=== PATIENT | male | born 1965 | race Caucasian/White ===

== ENCOUNTER → 2016-11-26 | Outpatient (CLI) | payer MEDICARE, MEDICAID ==
[~2016-11-26] MED LIST: ACET325T38 PO; BISA-65 PO; BISA10SU6 RC; BNZT2T PO; CARB100T PO; CARB15DR87 LEFT EAR; CLIN300C11 PO; CRB200T PO; DCS100C PO; MULT-608 PO; PALI6TAB2 PO; SENN1TAB6 PO
--- NOTE | 2016-11-26 15:58 | Diagnostic Imaging Report ---
PROCEDURE: US right lower extremity venous. TECHNIQUE: Multiple real-time grayscale images were obtained over the right lower extremity in various projections. Additional duplex Doppler and color Doppler images were also obtained. INDICATION: Right leg swelling. EXAMINATION: Grayscale and color Doppler evaluation of the deep veins of the right lower extremity were performed with waveform analysis. FINDINGS: Continuous venous flow is present. No intraluminal filling defect is identified. There is normal compressibility and response to augmentation. No abnormal perivascular fluid collection is identified. IMPRESSION: No ultrasound evidence of right lower extremity deep venous thrombosis. Dictated by: Dictated on workstation # [id number]
== END ==
LOC: RAD 15:25
PROVIDERS: ATTEND Family Medicine
DX: R22.41 Localized swelling, mass and lump, right lower limb (principal)

== ENCOUNTER 2017-02-07 16:44 | Emergency (ER) | payer MEDICARE, MEDICAID ==
[~2017-02-07] VITALS: Ht 157.5 cm; Wt 68.9 kg
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
--- NOTE | 2017-02-07 16:52 | ED Head Injury ---
General Stated Complaint: FALL/HEAD LAC Source: caregiver Exam Limitations: no limitations History of Present Illness Time seen by provider: 16:51 Initial Comments To ER accompanied by staff from [place] where he resides due to a diagnosis of profound mental retardation. He is nonverbal. Unwitnessed fall today in his room with a laceration over the lateral left eyebrow. Occurred: just prior to arrival Severity: mild Allergies and Home Medications Allergies Coded Allergies: Penicillins (Unverified Allergy, Unknown, 09/24/15) tuberculin,purif.prot.deriv. (Unverified Allergy, Unknown, 09/24/15) Home Medications Acetaminophen 325 Mg Tablet, 650 MG PO EVERY 4-6 HOURS PRN for PAIN/ELEVATED TEMP, (Reported) TAKES 2 (325MG) TABLETS Benztropine Mesylate 2 Mg Tablet, 2 MG PO 0700,1600,2000, (Reported) Bisacodyl 5 Mg Tablet.dr, 5-10 MG PO DAILY PRN for CONSTIPATION, (Reported) TAKES 1 TO 2 (5MG) TABLETS Bisacodyl 10 Mg Supp.rect, 10 MG RC HS PRN for CONSTIPATION, (Reported) Carbamazepine 100 Mg Tab.chew, 100 MG PO DAILY @ 1600, (Reported) Carbamazepine 200 Mg Tablet, 200 MG PO 0700, 1900, (Reported) Carbamide Peroxide 15 Ml Drops, 10 DROPS LEFT EAR DAILY for 10 Days, (Reported) Clindamycin HCl 300 Mg Capsule, 300 MG PO TID, #15 Prescribed by: PAULA JETER on 09/26/15 0806 Docusate Sodium 100 Mg Cap, 200 MG PO DAILY, (Reported) TAKES 2 (100MG) CAPSULES Multivitamins 1 Tab Tablet, 1 TAB PO DAILY, (Reported) Paliperidone 6 Mg Tab.osm.24, 6 MG PO 0700,1900, (Reported) Constitutional: see HPI Eyes: No Symptoms Reported Ears, Nose, Mouth, Throat: no symptoms reported Respiratory: no symptoms reported Cardiovascular: no symptoms reported Genitourinary: no symptoms reported Musculoskeletal: no symptoms reported Skin: no symptoms reported Psychiatric/Neurological: No Symptoms Reported Past Hpxclir-Vaatgp-Jtvgdy Hx Patient Social History Recent Foreign Travel: No Contact w/Someone Who Travel: No Immunizations Up To Date Date of Influenza Vaccine: Jan 20, 2015 Seasonal Allergies Seasonal Allergies: No Respiratory Currently Using CPAP: No Currently Using BIPAP: No Neurological Neurological Disorders: Developmental Disorder, Seizure Disorder Reproductive System Hx Reproductive Disorders: No Sexually Transmitted Disease: No HIV/AIDS: No Gastrointestinal Gastrointestinal Disorders: Chronic Constipation, Hepatitis Musculoskeletal Musculoskeletal Disorders: Scoliosis, Contracture HEENT Loss of Vision: Denies Hearing Impairment: Hard of Hearing Psychosocial Behavioral Health Disorders: Anxiety, Personality Disorder, Violent Behavior, Depression Blood Transfusions Adverse Reaction to a Blood Tr: No Family Medical History Family Medial History: Patient reports no known family medical history. Physical Exam Vital Signs Vital Sign - Last 12Hours 02/07/17 16:53 Temp 96.8 Pulse 75 Resp 16 B/P (MAP) 118/81 Pulse Ox 98 Capillary Refill : General Appearance: WD/WN, no apparent distress HEENT: PERRL/EOMI, normal ENT inspection, other Neck: non-tender, full range of motion Cardiovascular: regular rate, rhythm Respiratory: no respiratory distress, no accessory muscle use Gastrointestinal: non tender, soft Extremities: normal range of motion, non-tender Psychiatric: alert, oriented x 3 Crainal Nerves: normal hearing, normal speech Skin: normal color, warm/dry Laceration Repair : Wound Location: Face Wound Length (cm): 1.5 Wound's Depth, Shape: linear Wound Explored: clean Irrigated w/ Saline (ccs): 20 Betadine Prep?: Yes Other Closure Supply: Wound Adhesive Progress/Results/Core Measures Results/Orders My Orders Orders - JED GUARDADO APRN Dipht,Pertjenny(Acell),Tet Adult (Boostrix (02/07/17 17:00) Let Solution (Let Solution) (02/07/17 17:00) Ct Head Wo (02/07/17 16:50) Medications Given in ED Current Medications Medications Dose Ordered Sig/Bhargavi Route Start Time Stop Time Status Last Admin Dose Admin Tetracaine/ Epinephrine/ Lidocaine 1 ea ONCE ONCE TOP 02/07/17 17:00 02/07/17 17:01 DC 02/07/17 16:57 1 EA Vital Signs/I&O Vital Sign - Last 12Hours 02/07/17 16:53 Temp 96.8 Pulse 75 Resp 16 B/P (MAP) 118/81 Pulse Ox 98 Diagnostic Imaging Diagonstic Imaging: CT Plain Films/CT/US/NM/MRI: head Comments NAME: HARRISON MOREJON Wilmar [facility] REC#: [id number] PT STATUS: REG ER : 1965 PHYSICIAN: JED GUARDADO CLINICAL REGISTERED NURSE ADMIT DATE: 02/07/17/ER Draft Date of Exam:02/07/17 CT HEAD WO PROCEDURE: CT head without contrast. TECHNIQUE: Multiple contiguous axial images were obtained through the brain without the use of intravenous contrast. INDICATION: Fall. Head injury. COMPARISON: None. FINDINGS: No intracranial hemorrhage, mass effect, hydrocephalus or extra-axial fluid collections. No CT evidence of acute infarction. 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 The visualized paranasal sinuses and mastoids are clear. No fractures. IMPRESSION: No acute intracranial CT findings. No fractures. Dictated on workstation # [id number] Dict: 02/07/171716 Trans: 02/07/171724 [facility] [id number] Interpreted by: CAROLIN ANGEL MD Electronically signed by: Departure Impression Impression: Primary Impression: Eyebrow laceration Disposition: 01 HOME, SELF-CARE Condition: Stable Departure-Patient Inst. Decision time for Depature: 17:27 Referrals: BHUPINDER LAURA DO (PCP/Family) Primary Care Physician Patient Instructions: Laceration Repair With Glue (DC) Add. Discharge Instructions: 1. Return to ER for any concerns 2. Follow-up with your doctor next week 3. JED GUARDADO APRN Feb 07, 2017 16:52
[2017-02-07] MEDS ORDERED: L.E.T. SYRINGE 5 ML TOP ONE (17:00)
[2017-02-07] MEDS ORDERED: TETANUS,DIPTH,PERTUSS P/F (BOOSTRIX) 0.5 ML VIAL IM ONE (17:00)
--- NOTE | 2017-02-07 17:25 | Diagnostic Imaging Report ---
PROCEDURE: CT head without contrast. TECHNIQUE: Multiple contiguous axial images were obtained through the brain without the use of intravenous contrast. INDICATION: Fall. Head injury. COMPARISON: None. FINDINGS: No intracranial hemorrhage, mass effect, hydrocephalus or extra-axial fluid collections. No CT evidence of acute infarction. 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 The visualized paranasal sinuses and mastoids are clear. No fractures. IMPRESSION: No acute intracranial CT findings. No fractures. Dictated by: Dictated on workstation # [id number]
[2017-02-07 17:50] VITALS: BP 118/81
== END 2017-02-07 17:50 | disposition home or self-care (01) ==
LOC: EDUNIT# 16:44 → ER 16:45
DX: S01.111A Laceration without foreign body of right eyelid and periocular area, initial encounter (principal); G40.909 Epilepsy, unspecified, not intractable, without status epilepticus; F41.9 Anxiety disorder, unspecified; F31.9 Bipolar disorder, unspecified; M41.20 Other idiopathic scoliosis, site unspecified; Z23 Encounter for immunization; Z87.19 Personal history of other diseases of the digestive system; W19.XXXA Unspecified fall, initial encounter; Y92.009 Unspecified place in unspecified non-institutional (private) residence as the place of occurrence of the external cause
CPT/HCPCS: 12011; 70450; 90715

== ENCOUNTER 2018-11-18 12:34 | Outpatient (RCR) | payer MEDICARE, MEDICAID ==
[~2018-11-18 12:34] MED LIST changes: -BISA10SU6 RC; +BISA10SU8 RC; +SENN-229 PO; -SENN1TAB6 PO
== END 2018-11-18 17:00 | disposition home or self-care (01) ==
PROVIDERS: ATTEND Family Medicine
DX: M25.621 Stiffness of right elbow, not elsewhere classified (principal); M25.622 Stiffness of left elbow, not elsewhere classified; M25.641 Stiffness of right hand, not elsewhere classified; M25.642 Stiffness of left hand, not elsewhere classified

== ENCOUNTER → 2021-06-04 | Outpatient (CLI) | payer MEDICARE, MEDICAID ==
[~2021-06-04] MED LIST changes: +CLIN-144 PO; -CLIN300C11 PO
[2021-06-04 12:01] LABS: BASOPHILS % (AUTO) 0 % (0-10); EOSINOPHILS # (AUTO) 0.1 10^3/uL (0.0-0.3); EOSINOPHILS % (AUTO) 1 % (0-10); HEMATOCRIT 48 % (40-54); HEMOGLOBIN 15.7 g/dL (13.3-17.7); LYMPHOCYTES # (AUTO) 3.7 10^3/uL (1.0-4.0); LYMPHOCYTES % (AUTO) 35 % (12-44); MEAN CORPUSCULAR HEMOGLOBIN 29 pg (25-34); MEAN CORPUSCULAR HGB CONC 33 g/dL (32-36); MEAN CORPUSCULAR VOLUME 89 fL (80-99); MEAN PLATELET VOLUME 9.2 fL (9.0-12.2); MONOCYTES % (AUTO) 9 % (0-12); NEUTROPHILS # (AUTO) 5.7 10^3/uL (1.8-7.8); NEUTROPHILS % (AUTO) 54 % (42-75); PLATELET COUNT 171 10^3/uL (130-400); WHITE BLOOD COUNT 10.5 10^3/uL (4.3-11.0)
[2021-06-04 12:20] LABS: CALCIUM 9.6 MG/DL (8.5-10.1); CREATININE SERUM 0.93 MG/DL (0.60-1.30); POTASSIUM 4.1 MMOL/L (3.6-5.0)
--- NOTE | 2021-06-04 12:48 | Diagnostic Imaging Report ---
INDICATION: Cough. COMPARISON: 09/25/2015. FINDINGS: There are very minimal likely atelectatic changes in the left lung base. No consolidating pneumonia. There is no failure pattern, effusion, or pneumothorax. IMPRESSION: Likely slight left basilar atelectasis, otherwise negative. Dictated by: Dictated on workstation # [id number]
== END ==
LOC: RAD 11:23
PROVIDERS: ATTEND Family Medicine
DX: R05.9 Cough, unspecified (principal)
CPT/HCPCS: 36415; 71045; 80048; 85025